=== PATIENT | male | born 1985 | race Caucasian/White ===

== ENCOUNTER → 2018-11-21 10:47 | Day surgery (SDC) | payer OTHER ==
[~2018-11-21 10:47] MED LIST: Atracurium* 10 MG/ML 10 ML VIAL ONE; Buffered Lidocaine 1% SYRIN* 1 ML/SYRINGE INTRADERM ONE; Bupivacaine 0.25% EPI 200,000* 30 ML SDV ONE; Clindamycin 900 MG/D5W BAG(*) 900 MG/50 ML BAG IVPB ONE; Dexamethasone IV* 4 MG/ML 1 ML (4 MG) IV SLOW PU ONE; Dexamethasone IV* 4 MG/ML 1 ML (4 MG) ONE; EPINEPHRINE 1 MG/ML 1 ML VIAL ONE; Famotidine IV* 10 MG/ML 2 ML (20 mg) IV ONE; Famotidine IV* 10 MG/ML 2 ML (20 mg) ONE; Glycopyrrolate IV* 0.2 MG/ML 1 ML VIAL ONE; HYDROmorphone INJ1* 1 MG/ML SYRINGE IV PRN; Lactated Ringers 1000 ML Bag* 1,000 ML IV SCH; Midazolam* 1 MG/ML 5 ML VIAL (5 MG) ONE; Nalbuphine* 10 MG/ML 1 ML VIAL IV PRN; Nalbuphine* 10 MG/ML 1 ML VIAL ONE; Naloxone* 0.4 MG/ML 1 ML VIAL IV PRN; Ondansetron INJ* 2 MG/ML VIAL IV PRN; Ondansetron INJ* 2 MG/ML VIAL ONE; Propofol* 10 MG/ML 20 ML BTL ONE; ROPIVACAINE 5 MG/ML 30 ML BTL (0.5%) ONE; fentaNYL* 50 MCG/ML 2 ML VIAL (100 MCG VIAL) IV PRN; fentaNYL* 50 MCG/ML 2 ML VIAL (100 MCG VIAL) ONE; oxyCODONE/Acetamin 5/325 MG* TAB PO PRN
[2018-11-21 15:55] VITALS: BP 124/84
--- NOTE | 2018-11-22 19:29 | OP ---
OPERATIVE REPORT: DATE OF OPERATION: 11/21/18 DATE OF : 81 SURGEON: Zaid Lowe MD [facility] SPECIALTY: SOLOMON Mar A physician diver assistant was required for the length of the procedure for assistance with patient positi oning, instrumentation, and closure. ANESTHESIOLOGIST: Dr. Herrera. ANESTHESIA: General anesthesia, regional interscalene block anesthesia. PRE-OP DIAGNOSES: 1. Right shoulder acromioclavicular joint osteoarthritis, symptomatic. 2. Right shoulder subacromial bursitis, rotator cuff tendinitis. 3. Possible right shoulder rotator cuff tear or biceps injury. POST-OP DIAGNOSES: 1. Right shoulder acromioclavicular joint osteoarthritis, symptomatic. 2. Right shoulder subacromial bursitis and impingement, rotator cuff tendinitis. OPERATIVE PROCEDURE: 1. Right shoulder arthroscopic distal clavicle resection. 2. Right shoulder arthroscopic subacromial decompression. IV FLUIDS: See anesthesia note. ANTIBIOTICS: Clindamycin 900 mg IV. IV FLUIDS: See anesthesia note. SKIN TO SKIN TIME: 36 minutes. SPECIMEN: None. IMPLANTS: None. ESTIMATED BLOOD LOSS: Minimal. COMPLICATIONS: None. INDICATIONS FOR SURGERY: The patient is a 33-year-old man, right-hand dominant with a long history o f pain in the right shoulder since December 2017, refractory to nonoperative management. The patient opted for surgery. Discussed the risks and potential complications of surgery. While the patient's primary pathology was distal clavicle and AC joint osteoarthritis and subacromial impingement and bursitis, and told the patient that I would also assess the biceps and rotator cuff and treat either if there was unexpected disease in either and the patient was surely okay and agreea ble with that. DESCRIPTION OF PROCEDURE: In preop holding, the patient signed the written consent. Operative extre mity was marked in the preop holding. In preop holding, the patient underwent an interscalene nerve block, regional by Dr. Herrera. The patient was brought back to the operating room and placed supin e on operating room table, sedated and intubated. The patient was placed in right lateral decubitus position with the right shoulder up. Axillary roll . All bony prominences padded. Longitudinal traction 15 pounds. Beanbag hardened. Right shoulder p repped and draped. Formal surgical timeout performed. I made a posterior arthroscopic glenohumeral joint portal first, just after I placed 30 cc of normal saline into the joint using a spinal needle. I started diagnostic arthroscopy. No clear rotator cuf f tear. No clear labrum tear. No articular cartilage damage. I made an anterior glenohumeral joint portal under direct visualization. I probed the biceps and sup erior labrum, no injury. I removed instruments and fluid from the glenohumeral joint and removed under subacromial space. I m zahira anterior and posterior portals. I subsequently made lateral and posterolateral portals. The patient had much subacromial bursitis. I debrided the subacromial bursa with an arthroscopic sha flaca. I had a good view of the rotator cuff bursal side and again there was no tearing there whatsoever. I released the CA ligament with a Bovie electrocautery off of the acromion. I skeletonized the under surface of the acromion and removed the anterior curve of the anterior acromion with an arthroscopic bur. I next moved to the AC joint. I debrided bursitic tissue with a cautery device and then I removed 8 mm of the distal end of the clavicle using arthroscopic bur. I also removed just a very light amount of bone on the acromial side of the joint. Visualization from both posterior and anterior demonstrat ed the distal clavicle resection to be sufficient. Removed instruments and fluids from the shoulder. Closed skin incisions with [id number] and 12 stitches using nylon 3.0 suture. Xeroform, 4 x 4's, ABDs, foam tape. A sling without abduction pill ow applied. DISPOSITION: The patient was discharged to home. The patient will follow up with me in 10-14 days p ostoperatively. The patient will start physical therapy immediately. Percocet as needed for pain co ntrol. The patient will wean out of sling as soon as possible. [id number]/[id number] #: [id number]
== END | disposition home or self-care (01) ==
LOC: OR 10:47
PROVIDERS: ATTEND Orthopaedic Surgery
DX: M19.011 Primary osteoarthritis, right shoulder (principal); M75.41 Impingement syndrome of right shoulder; M75.51 Bursitis of right shoulder; M77.8 Other enthesopathies, not elsewhere classified; G89.18 Other acute postprocedural pain
CPT/HCPCS: J1100; J2250; J2300; J2405; J2704; J2795; J3010